=== PATIENT | male | born 2000 | race Caucasian/White ===

== ENCOUNTER 2023-08-30 17:42 | Emergency (ER) | payer OTHER, SELFPAY ==
[2023-08-30 17:44] VITALS: BP 139/87
--- NOTE | 2023-08-30 18:55 | ED.GENMED ---
History of Present Illness
General
Chief Complaint: Throat Problem
Time Seen by Provider: 08/30/23 18:55
Travel History
Have you had any contact with someone who has COVID-19?: No
Do you have any symptoms of coronavirus? Fever > 100 degrees, chills, cough, shortness of breath, sore throat, loss of taste or smell, muscle aches, or headache?: No
History of Present Illness
History of Present Illness:
HPI: Patient has a few complaints:
#1 chest pain�this is intermittently occurring over the last several years
#2 he has a smoking history and was concerned about the possibly of bronchitis
#3 he says he has been bringing up blood from the back of his throat
EXAM:
GENERAL: Well appearing in no distress
HEENT: Moist oral mucosa posterior oropharynx is unremarkable, there is no exudate, it is widely patent, and there is no obvious sign of blood
CARDIOVASCULAR: No murmurs, normal heart rate, regular rhythm, No chest wall tenderness
PULMONARY: No respiratory distress, breath sounds are somewhat decreased significant wheeze
ABDOMEN: Soft with no peritoneal signs, no tenderness
NEUROLOGIC: Excellent strength all extremities, no coordination deficits
PSYCHIATRIC: Appropriate mental status, normal insight and judgement
EXTREMITIES: Nontender, no edema, moves all extremities equally
SKIN: No rash, no lesions
TIME OF INITIAL ENCOUNTER: 7 PM
NUMBER AND COMPLEXITY OF PROBLEMS ADDRESSED AT THE ENCOUNTER
� Chronic conditions affecting care: Is a smoker/vapes, ADHD
� Acute Exacerbation and/or Progression of Chronic Illness: This is an acute problem
� Differential Diagnosis includes: Pneumothorax, bacterial pneumonia, viral bronchitis, doubt coagulopathy given his young age and he has no petechial rash to suggest thrombocytopenia
AMOUNT AND/OR COMPLEXITY OF DATA TO BE REVIEWED AND ANALYZED
� I performed an independent evaluation of and my interpretation is:
EKG: Sinus 73, normal axis, no acute ST abnormality
CT:
X-rays: Chest x-ray shows no acute abnormality
Laboratory Studies:
Other:
� Review of other/old records: I reviewed records. The patient was here in 2021 with pleuritic chest discomfort at that time had an unremarkable chest x-ray.
� Clinical information was obtained by an independent historian: I spoke to his mother's 'best friend'
� Prescriptions/Medications Considered but not given: No clear indication for antibiotics at this time
� Further testing considered but not performed:
RISK OF COMPLICATIONS AND/OR MORBIDITY OR MORTALITY OF PATIENT MANAGEMENT
� Social determinants of health affecting care: Lives at home, is a smoker
� Discussion with other providers:
� Escalation of care including admission/observation vs risk of discharge considered: The patient was given a DuoNeb and chest x-ray was negative. On reassessment at 8 PM, the patient feels significant proved after DuoNeb. We
also gave steroids. Suspect viral bronchitis.
Past History
Past History
ED Past Medical History: None
ED Past Surgical History: None
Social History
Tobacco: Non-smoker
Alcohol: Occasional
Drug: None and Marijuana
Personal: Single
Living: with family
Employment: Employed
Family History
Family History: Other (Noncontributory no sick contacts)
Phy Exam
Physical Exam
Physical Exam:
See HPI
Course
Orders/Labs/Results
Orders:
Orders
08/30/23 19:04
Electrocardiogram (*1) Urgent
Reason for Study: Chest Pain
EKG- Treatment ONCE
Ipratropium/Albuterol Sulfate [Duoneb] 3 ml INH R NOW ONE
Prednisone [Deltasone] 50 mg PO NOW STA
CR Chest - 2 Views Urgent
Comment:
Reason For Exam: cough hemoptysis
Vital Signs
Initial and Last Documented VS:
Initial Vital Signs
Temp Pulse Resp BP Pulse Ox
99.0 F 84 16 139/87 98
08/30/23 17:44 08/30/23 17:44 08/30/23 17:44 08/30/23 17:44 08/30/23 17:44
Last Documented Vital Signs
Temp Pulse Resp BP Pulse Ox
99.0 F 71 18 116/75 100
08/30/23 17:44 08/30/23 19:41 08/30/23 19:41 08/30/23 19:41 08/30/23 19:41
*Critical Care Note
Total Time (30-74mins, 75-104mins- exclusive of procedures): Not Applicable
ED Attending Note
-
Portions of this chart may have been created with voice recognition software.� Occasional wrong word or��sound alike� substitutions may have occurred due to the inherent limitations of voice recognition software.
Discharge Plan
Departure
Prescriptions:
No Action
ondansetron 4 MG tablet,disintegrating
4 mg PO TIDPRN PRN (Reason: nausea/vomiting) Qty: 6 0RF
ondansetron 4 mg tablet,disintegrating
4 mg PO TID PRN (Reason: nausea and vomiting) 4 Days Qty: 14 0RF
Referrals:
NONE,* [Family Provider] -
Interventions
Interventions:
*Risk Screen - Suicide Last Done: 08/30/23 19:13
*General Assessment Last Done: 08/30/23 19:13
*Neglect/Abuse Screening Last Done: 08/30/23 19:13
ED- Fall Risk Assessment Last Done: 08/30/23 19:42
*ED COVID-19 Vaccine History Last Done: 08/30/23 17:44
ED-EENT Assessment Last Done: 08/30/23 19:40
ED- Pulmonary Assessment Last Done: 08/30/23 19:40
Discharge Date and Time
Print Language: KOREAN
[2023-08-30 19:13] VITALS: BMI 20.5
[2023-08-30] MEDS: DUONEB 3 ML INH (19:15)
[2023-08-30] MEDS: DELTASONE 50 MG PO (19:15)
[2023-08-30 19:41] VITALS: BP 116/75
== END 2023-08-30 20:14 | disposition home or self-care (01) ==
LOC: EMR 17:42
PROVIDERS: EMERGENCY PHYSICIAN Emergency Medicine
DX: R07.89 Other chest pain (principal); R05.9 Cough, unspecified; R04.2 Hemoptysis; F17.200 Nicotine dependence, unspecified, uncomplicated; Z88.1 Allergy status to other antibiotic agents; Z88.8 Allergy status to other drugs, medicaments and biological substances
CPT/HCPCS: 99283; 94640; 71046; 93005

== ENCOUNTER 2024-03-02 21:13 | Emergency (ER) | payer OTHER, SELFPAY ==
[2024-03-02 21:14] VITALS: BMI 20.2
[2024-03-02 21:19] VITALS: BP 128/78
--- NOTE | 2024-03-02 22:23 | ED.GENMED ---
History of Present Illness
General
Chief Complaint: Dental Problem
Source: patient
Time Seen by Provider: 03/02/24 22:15
Nursing documentation reviewed up to this point in time: agreed with
History of Present Illness
History of Present Illness:
Pleasant 23-year-old male presents with mild dental pain and funny taste in his mouth. He states that he knows he needs a dentist but is waiting for his insurance to kick in. Patient denies fever or chills.
Past History
Past History
ED Past Medical History: None
ED Past Surgical History: None
Social History
Tobacco: Non-smoker
Alcohol: Occasional
Drug: None and Marijuana
Personal: Single
Living: with family
Employment: Employed
Family History
Family History: Other (Noncontributory no sick contacts)
Review of Systems
Review of Systems
Allergies reviewed?: Yes
All Other Systems: Not applicable
Constitutional: Denies fever or chills
EENT: Reports mouth pain and other (Poor dentition. No evidence of abscess.)
Respiratory: Reports no symptoms
Cardiac: Reports no symptoms
ABD/GI: Reports no symptoms
: Reports no symptoms
Musculoskeletal: Reports no symptoms
Skin: Reports no symptoms
Neurological: Reports no symptoms
Endocrine: Reports no symptoms
Hematologic/Lymphatic: Reports no symptoms
Psychiatric: Reports no symptoms
Phy Exam
General Physical Exam
General Presentation: well appearing and mild distress
General age: appears stated age
General Skin: warm and dry
General Habitus: normal
General Mental: alert
General Hydration: appears well hydrated
Cardiovascular Exam
Cardiovascular Exam: regular rate/rhythm
Pulmonary Exam
Pulmonary Exam: lungs clear and no respiratory distress
Gastrointestinal Exam
Gastrointestinal Exam: normal bowel sounds and non tender
Auscultation of Abdomen: normal
Neurological Exam
Neurological Exam: alert and oriented x3
Musculoskeletal Exam
Musculoskeletal Exam: full ROM
Skin Exam
Skin Exam: normal color and warm/dry
Psychiatric Exam
Psychiatric Exam: normal mood/affect
Course
Orders/Labs/Results
Orders:
Orders
03/02/24 22:22
Clindamycin HCl [Cleocin] 450 mg PO NOW STA
Ibuprofen [Motrin] 600 mg PO NOW STA
Vital Signs
Initial and Last Documented VS:
Initial Vital Signs
Temp Pulse Resp BP Pulse Ox
98.3 F 78 20 128/78 99
03/02/24 21:19 03/02/24 21:19 03/02/24 21:19 03/02/24 21:19 03/02/24 21:19
Last Documented Vital Signs
Temp Pulse Resp BP Pulse Ox
98.3 F 78 20 128/78 99
03/02/24 21:19 03/02/24 21:19 03/02/24 21:19 03/02/24 21:19 03/02/24 21:19
*Critical Care Note
Total Time (30-74mins, 75-104mins- exclusive of procedures): Not Applicable
Update Note
Update Note:
No indication for admission. No abscess noted. Patient started on antibiotics. Given a list of free and low-cost dentists.
ED Attending Note
-
Portions of this chart may have been created with voice recognition software.� Occasional wrong word or��sound alike� substitutions may have occurred due to the inherent limitations of voice recognition software.
Discharge Plan
Departure
Patient Disposition: Home (Routine Discharge)
Date of Disposition: 03/02/24
Time of Disposition: :24
Patient with high blood pressure during this ER visit?: Yes
Discharge Problem:
Dentalgia, Dental infection
Instructions: Tooth Decay, Adult (DC), Dental Pain (DC)
Prescriptions:
New
clindamycin HCl [Cleocin HCl] 150 mg capsule
450 mg PO TID 10 Days Qty: 90 0RF
diclofenac sodium 75 mg tablet,delayed release (DR/EC)
75 mg PO BID Qty: 10 0RF
No Action
ondansetron 4 MG tablet,disintegrating
4 mg PO TIDPRN PRN (Reason: nausea/vomiting) Qty: 6 0RF
ondansetron 4 mg tablet,disintegrating
4 mg PO TID PRN (Reason: nausea and vomiting) 4 Days Qty: 14 0RF
albuterol sulfate 90 mcg/actuation HFA aerosol inhaler
2 puff inhalation Q6H PRN (Reason: shortness of breath or wheezing) Qty: 8.5 0RF
prednisone 50 mg tablet
50 mg PO DAILY Qty: 4 0RF
Referrals:
[facility] [Outside]
[facility] [Outside]
Activity Restrictions/Additional Instructions:
It was a pleasure meeting you and taking part in your care. We hope for your continued healing and wellness.
Please read discharge instructions in their entirety. However, they are for general education and may not describe your exact diagnosis at discharge. Information on your ER visit and medical conditions were discussed with you along with appropriate
follow up information...
If indicated, please take your medications as instructed and indicated on discharge paperwork.
Please schedule a follow up appointment as directed. Call to schedule an appointment
Please return to the emergency department with ANY change in, persisting, or worsening of symptoms. If any of your symptoms do not improve, or persist, or become more severe within 6-12 hours, please return to the emergency department for further
care.
Please return to the emergency department if you develop a headache, neck pain/stiffness, fever greater than 100.4F, chest pain, shortness of breath, persistent nausea, vomiting, slurred speech, difficulty walking, numbness/tingling, weakness, signs
of infection or any other symptoms that are worrisome to you.
If you have any questions or concerns please do not hesitate to call the Hospital at or E-mail me directly at [email or web address]
Reduced-Fee Dental Clinics
[facility]: [phone] call for appt. No walk ins
[facility]:
[facility]: [phone]
[facility] [phone]
[facility]: . No walk ins
[facility]: [phone]
[facility]: [phone]
[facility] [place]: 1-
[facility]: [phone]
[facility]: [phone]
Counts Include [address] Sliding scale, Free for uninsured
[facility]: [phone]
[facility] ex [address] [place] [address]
[facility]:
[facility]:
Interventions
Interventions:
*Risk Screen - Suicide Last Done: 03/02/24 21:19
*General Assessment Last Done: 03/02/24 21:19
*Neglect/Abuse Screening Last Done: 03/02/24 21:19
ED- Fall Risk Assessment Last Done: 03/02/24 21:19
*ED COVID-19 Vaccine History Last Done: 03/02/24 21:19
*Nursing Disposition Last Done: 03/02/24 22:31
Discharge Date and Time
Print Language: QATARI
[2024-03-02] MEDS: MOTRIN 600 MG PO (22:27)
[2024-03-02] MEDS: CLEOCIN 450 MG PO (22:29)
== END 2024-03-02 22:44 | disposition home or self-care (01) ==
LOC: EMR 21:13
PROVIDERS: EMERGENCY PHYSICIAN Student in an Organized Health Care Education/Training Program
DX: K04.7 Periapical abscess without sinus (principal); K08.89 Other specified disorders of teeth and supporting structures; R03.0 Elevated blood-pressure reading, without diagnosis of hypertension; Z59.71 Insufficient health insurance coverage; F90.9 Attention-deficit hyperactivity disorder, unspecified type; F17.290 Nicotine dependence, other tobacco product, uncomplicated; Z88.1 Allergy status to other antibiotic agents; Z88.8 Allergy status to other drugs, medicaments and biological substances
CPT/HCPCS: 99283

== ENCOUNTER 2024-08-13 17:52 | Emergency (ER) | payer SELFPAY ==
[2024-08-13 17:57] VITALS: BP 125/85
[2024-08-13 18:26] LABS: COVID-19 Antigen Positive (Negative)
--- NOTE | 2024-08-13 19:01 | ED.GENMED ---
History of Present Illness
General
Chief Complaint: Throat Problem
Source: patient
Exam Limitations: none
Time Seen by Provider: 08/13/24 18:41
Nursing documentation reviewed up to this point in time: agreed with
History of Present Illness
History of Present Illness:
23-year-old male presenting to the emergency department today with concerns of sore throat over the past few days initially preceded by some upper respiratory symptoms. Denies any specific fevers at this point no chest pain or shortness of breath.
Past History
Past History
ED Past Medical History: None
ED Past Surgical History: None
Social History
Tobacco: Non-smoker
Alcohol: Occasional
Drug: None and Marijuana
Personal: Single
Living: with family
Employment: Employed
Family History
Family History: Other (Noncontributory no sick contacts)
Review of Systems
Review of Systems
Allergies reviewed?: Yes
All Other Systems: ROS reviewed and negative except as documented in HPI and ROS
Phy Exam
Physical Exam
Physical Exam:
GENERAL: Alert , in no apparent distress
EYE: pupils equal and reactive
NECK: Supple, no significant adenopathy.
ENT: Vague swelling to the soft palate in the posterior pharynx uvula slightly swollen grossly patent airway, no significant swelling to the tonsils themselves. o/p clr, mmm.
CARDIAC: Regular rate and rhythm .
LUNGS: Clear breath sounds bilaterally, no acute respiratory distress, no wheezes/rales/rhonchi
ABDOMEN: Soft, without focal tenderness, no r/g, no cvat
NEUROLOGICAL: Alert and oriented, no focal neuro deficits
SKIN: Warm and dry, skin intact.
MUSCULOSKELETAL: No edema, well perfused.
PSYCH: Normal and appropriate interaction.
Course
Orders/Labs/Results
Orders:
Orders
08/13/24 18:02
COVID-19 Antigen Urgent
Source: Nasal Swab
Influenza A+B Rapid Molecular Urgent
RACHEL Source: Nasal Swab
Specimen Description:
Date Specimen was Collected: 08/13/24
Time Specimen was Collected: 17:58
Rapid Strep Group A Urgent
RACHEL Source: Throat/Pharynx
Specimen Description:
Date Specimen was Collected: 08/13/24
Time Specimen was Collected: 17:58
08/13/24 18:58
Dexamethasone Pf [Decadron] 10 mg PO NOW STA
Ketorolac [Toradol] 15 mg IM NOW STA
Abnormal Lab Results
08/13/24
18:02
SARS-CoV-2 Antigen Positive A
(Negative)
Vital Signs
Initial and Last Documented VS:
Initial Vital Signs
Temp Pulse Resp BP Pulse Ox
98.0 F 94 17 125/85 99
08/13/24 17:57 08/13/24 17:57 08/13/24 17:57 08/13/24 17:57 08/13/24 17:57
Last Documented Vital Signs
Temp Pulse Resp BP Pulse Ox
98.0 F 94 17 125/85 99
08/13/24 17:57 08/13/24 17:57 08/13/24 17:57 08/13/24 17:57 08/13/24 17:57
MDM/Problems Addressed
MDM/Problems Addressed:
23-year-old male presenting to the emergency department today with concerns of sore throat over the past few days. Also has had some mild upper respiratory symptoms as well. On arrival vital signs are normal patient no distress tolerating
secretions. Does have some vague swelling to the posterior pharynx but otherwise patent airway. Patient was positive for COVID likely explaining symptoms. Strep test negative. Plan for treatment with anti-inflammatory otherwise stable for
outpatient management.
*Critical Care Note
Total Time (30-74mins, 75-104mins- exclusive of procedures): Not Applicable
ED Attending Note
-
Portions of this chart may have been created with voice recognition software.� Occasional wrong word or��sound alike� substitutions may have occurred due to the inherent limitations of voice recognition software.
Discharge Plan
Departure
Patient Disposition: Home (Routine Discharge)
Date of Disposition: 08/13/24
Time of Disposition: 19:02
Patient with high blood pressure during this ER visit?: No
Condition: Good
Covid-19: Not Applicable
Discharge Problem:
Pharyngitis
Instructions: Sore Throat, Adult (DC)
Prescriptions:
New
methylprednisolone [Medrol (Teddy)] 4 mg tablets,dose pack
See Rx Instructions .ROUTE .COMPLEX Qty: 21 0RF
Rx Instructions:
for 6 days
No Action
ondansetron 4 MG tablet,disintegrating
4 mg PO TIDPRN PRN (Reason: nausea/vomiting) Qty: 6 0RF
ondansetron 4 mg tablet,disintegrating
4 mg PO TID PRN (Reason: nausea and vomiting) 4 Days Qty: 14 0RF
albuterol sulfate 90 mcg/actuation HFA aerosol inhaler
2 puff inhalation Q6H PRN (Reason: shortness of breath or wheezing) Qty: 8.5 0RF
prednisone 50 mg tablet
50 mg PO DAILY Qty: 4 0RF
clindamycin HCl [Cleocin HCl] 150 mg capsule
450 mg PO TID 10 Days Qty: 90 0RF
diclofenac sodium 75 mg tablet,delayed release (DR/EC)
75 mg PO BID Qty: 10 0RF
Referrals:
UNKNOWN - PT DOES,NOT KNOW [Family Provider]
Activity Restrictions/Additional Instructions:
You came to the emergency department today with concerns of throat discomfort. This appears to be likely secondary to COVID. Please take the prescribed steroid otherwise follow close with your primary care doctor for any ongoing symptoms. Return
for any worsening, new or concerning symptoms.
Interventions
Interventions:
*Risk Screen - Suicide Last Done: 08/13/24 17:58
*General Assessment Last Done: 08/13/24 17:58
*Neglect/Abuse Screening Last Done: 08/13/24 17:58
*ED COVID-19 Vaccine History Last Done: 08/13/24 17:58
Discharge Date and Time
Print Language: MAORI
[2024-08-13] MEDS: TORADOL 15 MG IM (19:16)
[2024-08-13] MEDS: DECADRON 10 MG PO (19:16)
== END 2024-08-13 19:22 | disposition home or self-care (01) ==
LOC: EMR 17:52
PROVIDERS: EMERGENCY PHYSICIAN Student in an Organized Health Care Education/Training Program
DX: J02.9 Acute pharyngitis, unspecified (principal); U07.1 COVID-19; Z88.8 Allergy status to other drugs, medicaments and biological substances; Z11.52 Encounter for screening for COVID-19
CPT/HCPCS: 99284; 96372; 87070; 87502; 87811; 87880